=== PATIENT | female | born 1975 | race Two or more races ===

== ENCOUNTER 2018-11-05 16:23 | Emergency (ER) | payer BC ==
[~2018-11-05] VITALS: Ht 167.6 cm; Wt 78.3 kg
[2018-11-05 16:53] VITALS: BP 188/104; PULSE 90; RESP 18; Ht 167.6 cm; Wt 78.3 kg
[2018-11-05] MEDS ORDERED: IBUP-1542 PO (19:41)
--- NOTE | 2018-11-06 04:18 | ERD ---
ER Documentation Chief Complaint Chief Complaint left big toe nail injury, stumped toe to sleeper HPI 43-year-old female, employee at [employer] presents to the ED complaining of left big toe pain after hitting it against the bed 3 days ago. Patient complaining of progressively worsening left toe pain. No imaging was done. She denies any numbness or tingling. Has been taking ibuprofen for pain. No other injuries or complaints. ROS All systems reviewed and are negative except as per history of present illness. Medications Home Meds Active Scripts Ibuprofen* (Motrin*) 600 Mg Tab, 600 MG PO Q6H PRN for PAIN AND OR ELEVATED TEMP, #30 TAB Prov:JAZMÍNIVANNABERNARDO PA-C 11/05/18 Allergies Allergies: Coded Allergies: No Known Allergy (Unverified , 11/05/18) PMhx/Soc Medical and Surgical Hx: pt denies Medical Hx History of Surgery: Yes (hysterectomy) Anesthesia Reaction: No Hx Alcohol Use: No Hx Substance Use: No Hx Tobacco Use: No Smoking Status: Never smoker Physical Exam Vitals Vital Signs Date Temp Pulse Resp B/P (MAP) Pulse Ox O2 O2 Flow FiO2 Time Delivery Rate 11/05/18 98.3 90 18 188/104 98 16:53 (132) Physical Exam Const: No acute distress Head: Atraumatic Eyes: Normal Conjunctiva Lower Extremity -left Skin: No laceration Compartments: Soft Motor: Full active range of motion of the big toe, ankle and foot. Sensation: Intact to light touch FDWS/MF/LF/P surfaces. Bones: + Mild tenderness to palpation of the great toe. Nontender malleoli and dorsal foot. Pulses/Perfusion: 2+ DP, Capillary refill < 2 seconds Nail: No evidence of subungual hematoma of the great toe. Great toenail loose but still attached at the nailbed. Neur: Awake and alert Psych: Normal Mood and Affect Procedures/MDM PROCEDURES: PROCEDURE: X-ray left foot. CLINICAL INDICATION: Left great toe pain status post crush injury. A reference marker directed towards the medial aspect of the left great toe. TECHNIQUE: AP, lateral and oblique views of the left foot. COMPARISON: None. FINDINGS: No acute fracture or dislocation. There is a Aaron deformity at the posterior dorsum of the calcaneus. There is no evident retrocalcaneal bursitis. The soft tissues are unremarkable. IMPRESSION: No acute fracture. MEDICAL DECISION MAKING: This is a 43-year-old otherwise healthy female presents with left great toe contusion after hitting against the bed. X-ray as above is negative for any acute fracture dislocation. Her nail is loosened at the nailbed however she has no evidence of hematoma. No need for toenail removal as the toenail will likely fall off on its own. Toe was wrapped and patient was discharged home with a prescription for ibuprofen. Also recommended Epsom salt baths as well. No evidence of compartment syndrome, neurologic injury, vascular injury, open joint, open fracture, tendon laceration, or foreign body, cellulitis or deep space tissue infection. Recommended PCP follow-up this week. Strict return precautions were discussed. PRESCRIPTIONS: Motrin SPECIALIST FOLLOW UP RECOMMENDED: None Patient has been advised to follow up with primary care in 1-2 days. Blood Pressure Assessment: Patient's blood pressure was elevated (>120/80) but appears stable without evidence of hypertension emergency or urgency. The patient was counseled about the risks of hypertension and urged to pursue outpatient monitoring and therapy within a week with their primary care physician. Departure Diagnosis: Primary Impression: Toe contusion Encounter type: initial encounter Toe: great toe Damage to nail status: with damage Laterality: right Qualified Codes: S90.211A - Contusion of right great toe with damage to nail, initial encounter Condition: Stable Patient Instructions: Ingrown Toenail, No Infect (Hometx) Referrals: [facility] YOU HAVE RECEIVED A MEDICAL SCREENING EXAM AND THE RESULTS INDICATE THAT YOU DO NOT HAVE A CONDITION THAT REQUIRES URGENT TREATMENT IN THE EMERGENCY DEPARTMENT. FURTHER EVALUATION AND TREATMENT OF YOUR CONDITION CAN WAIT UNTIL YOU ARE SEEN IN YOUR DOCTORS OFFICE WITHIN THE NEXT 1-2 DAYS. IT IS YOUR RESPONSIBILITY TO MAKE AN APPOINTMENT FOR FOLOW-UP CARE. IF YOU HAVE A PRIMARY DOCTOR --you should call your primary doctor and schedule an appointment IF YOU DO NOT HAVE A PRIMARY DOCTOR YOU CAN CALL OUR PHYSICIAN REFERRAL HOTLINE AT IF YOU CAN NOT AFFORD TO SEE A PHYSICIAN YOU CAN CHOSE FROM THE FOLLOWING [facility] [address] [facility]. [facility] [address] [facility] [address] [facility] [facility] [address] [facility] [facility] [address] [facility]. [facility]. [address] [facility]. [facility] YOU HAVE RECEIVED A MEDICAL SCREENING EXAM AND THE RESULTS INDICATE THAT YOU DO NOT HAVE A CONDITION THAT REQUIRES URGENT TREATMENT IN THE EMERGENCY DEPARTMENT. FURTHER EVALUATION AND TREATMENT OF YOUR CONDITION CAN WAIT UNTIL YOU ARE SEEN IN YOUR DOCTORS OFFICE WITHIN THE NEXT 1-2 DAYS. IT IS YOUR RESPONSIBILITY TO MAKE AN APPOINTMENT FOR FOLOW-UP CARE. IF YOU HAVE A PRIMARY DOCTOR --you should call your primary doctor and schedule and appointment IF YOU DO NOT HAVE A PRIMARY DOCTOR YOU CAN CALL OUR PHYSICIAN REFERRAL HOTLINE AT . IF YOU CAN NOT AFFORD TO SEE A PHYSICIAN YOU CAN CHOSE FROM THE FOLLOWING FOR[facility]LY [facility] INSTITUTIONS: [facility] [address] [place] [address] [facility] [address] [place] [address] [facility] + [facility] [address] [place] [address] Additional Instructions: Wear sandals at home when you are not working. He can keep your toe covered and wrapped if you need to wear sneakers. I also recommend Epson salt baths for your foot for the next few days. The toenail would likely dislodged on its own. Monitor for any pus, discharge, fevers, chills. Return here for new or worsening symptoms. BERNARDO PANG PA-C Nov 06, 2018 04:18
== END 2018-11-05 20:41 | disposition home or self-care (01) ==
LOC: FTE 16:23
DX: S90.211A Contusion of right great toe with damage to nail, initial encounter (principal); W22.8XXA Striking against or struck by other objects, initial encounter; Y92.9 Unspecified place or not applicable